=== PATIENT | male | born 1990 ===

== ENCOUNTER 2021-12-09 05:30 | Emergency (ER) | payer SELFPAY ==
--- NOTE | 2021-12-09 07:25 | XRay Report ---
CHEST 2 VIEWS INDICATION: cough, cp. COMPARISON: None FINDINGS: SUPPORT DEVICES: None. HEART: Within normal limits. LUNGS/PLEURA: No acute air space or interstitial disease. No pneumothorax. ADDITIONAL FINDINGS: None. IMPRESSION: 1. No acute findings. Signer Name: Mele Magana MD Signed: 12/09/2021 7:21 AM Workstation Name: [email or web address] ([id number]
--- NOTE | 2021-12-09 07:35 | Emergency Department Report ---
ED Chest Pain HPI - General Chief Complaint: Chest Pain Stated Complaint: CP AND ANAL PAIN Time Seen by Provider: 12/09/21 06:18 Source: patient Mode of arrival: Ambulatory Limitations: No Limitations - History of Present Illness Initial Comments: This is a 31-year-old male nontoxic, well nourished in appearance, no acute signs of distress presents to the ED with 2 complaints: 1) c/o of sharp chest pain that occurred this morning and lasted for about 2-3 minutes. Stated has resolved since then. Denies any chest pain in the ED at this time. Denies being a smoker. Patient denies any radiation of pain. Patient denies any upper respiratory symptoms. 2) c/o rectal pain x several days. Patient stated does perform rectal sex. Denies any other complaints or symptoms. Patient stated symptoms started the following day after a sexual intercourse. Patient denies any rectal bleeding. Patient denies any shortness of breath, hemoptysis, fever, chills, nausea, vomiting, abdominal pain, pelvic pain, penile discharge, testicular symptoms, headache, stiff neck, numbness, tingling, abdominal pain. Patient denies pleuritic chest pain. Patient denies any recent travels or long car rides. Patient denies any recent surgeries or any sick contacts. MD Complaint: chest pain -: This morning Pain Location: substernal Pain Radiation: none Severity scale (0 -10): 0 Quality: sharp Consistency: now resolved Improves With: nothing Worsens With: nothing re: denies: nausea, vomting, diaphoresis, dyspnea, sense of impending doom Other Symptoms: denies: cough, fever, syncope, rash, acid taste in mouth, leg swelling, palpitations, burping Treatments Prior to Arrival: none Aspirin use within the Past 7 Days: (0) No - Related Data Allergies Allergy/AdvReac Type Severity Reaction Status Date / Time No Known Allergies Allergy Unverified 12/09/21 05:53 Heart Score - HEART Score History: Slightly suspicious EKG: Normal Age: < 45 Risk factors: No known risk factors Troponin: < normal limit HEART Score: 0 - EKG Read Time Time EKG Completed: 11:22 EKG Read Time: 11:25 - Critical Actions Critical Actions: 0-3 pts:0.9-1.7%risk of adverse cardiac event.Candidate for discharge ED Review of Systems ROS: Stated complaint: CP AND ANAL PAIN Other details as noted in HPI Comment: All other systems reviewed and negative Constitutional: denies: chills, fever Eyes: denies: eye pain, eye discharge, vision change ENT: denies: ear pain, throat pain Respiratory: denies: cough, shortness of breath, wheezing Cardiovascular: chest pain. denies: palpitations Endocrine: no symptoms reported Gastrointestinal: denies: abdominal pain, nausea, diarrhea Genitourinary: denies: urgency, dysuria Musculoskeletal: denies: back pain, joint swelling, arthralgia Skin: denies: rash, lesions Neurological: denies: headache, weakness, paresthesias Psychiatric: denies: anxiety, depression Hematological/Lymphatic: denies: easy bleeding, easy bruising ED Physical Exam - General Limitations: No Limitations General appearance: alert, in no apparent distress - Head Head exam: Present: atraumatic, normocephalic - Eye Eye exam: Present: normal appearance - Neck Neck exam: Present: normal inspection, full ROM. Absent: lymphadenopathy - Respiratory Respiratory exam: Present: normal lung sounds bilaterally. Absent: respiratory distress, wheezes, rales, rhonchi, stridor, chest wall tenderness, accessory muscle use, decreased breath sounds, prolonged expiratory - Cardiovascular Cardiovascular Exam: Present: regular rate, normal rhythm, normal heart sounds. Absent: bradycardia, tachycardia, irregular rhythm, systolic murmur, diastolic murmur, rubs, gallop - GI/Abdominal GI/Abdominal exam: Present: soft, normal bowel sounds. Absent: distended, tenderness, guarding, rebound, rigid, diminished bowel sounds - Rectal Rectal exam: Present: normal inspection, normal rectal tone, other (small rectal abrasion). Absent: decreased rectal tone, heme (+) stool, black stool, bloody stool, fecal impaction, hemorrhoids, mass, tenderness - Extremities Exam Extremities exam: Present: full ROM - Back Exam Back exam: Present: normal inspection, full ROM. Absent: tenderness, CVA tenderness (R), CVA tenderness (L), muscle spasm, paraspinal tenderness, vertebral tenderness, rash noted - Neurological Exam Neurological exam: Present: alert, oriented X3, normal gait - Psychiatric Psychiatric exam: Present: normal affect, normal mood - Skin Skin exam: Present: warm, dry, intact, normal color. Absent: rash ED Course Vital Signs 12/09/21 05:53 Temperature 98.6 F Pulse Rate 96 H Respiratory 18 Rate Blood Pressure 155/91 [Right] O2 Sat by Pulse 96 Oximetry - Reevaluation(s) Reevaluation #1: 12/09/21 07:38 Patient is speaking in full sentences with no signs of distress noted. Reevaluation #2: 12/09/21 08:08 Patient at this time is not in the ED. Unable to locate the patient. Patient eloped without telling the nurse or any other staff members. As per RN, unable to get in touch with the patient at this time. ED Medical Decision Making - EKG Data 12/09/21 12:02 Normal sinus rhythm at [address]. [address] or T wave abnormalities for STEMI Reviewed and signed by MD. - Radiology Data [facility] [address] [place] [address] XRay Report Signed Patient: JONATHON QUAN MR#: [id number] [birth year] : 1990 Acct:[id number] Age/Sex: 31 / M ADM Date: 12/09/21 Loc: ED Attending Dr: Ordering Physician: APRIL MILES MD Date of Service: 12/09/21 Procedure(s): XR chest routine 2V Accession Number(s): [id number] cc: APRIL MILES MD Fluoro Time In Minutes: CHEST 2 VIEWS INDICATION: cough, cp. COMPARISON: None FINDINGS: SUPPORT DEVICES: None. HEART: Within normal limits. LUNGS/PLEURA: No acute air space or interstitial disease. No pneumothorax. ADDITIONAL FINDINGS: None. IMPRESSION: 1. No acute findings. Signer Name: Mele Magana MD Signed: 12/09/2021 7:21 AM Workstation Name: [id number] Transcribed By: JW Dictated By: Mele Magana MD Electronically Authenticated By: Mele Magana MD Signed Date/Time: 12/09/21720 DD/ 9 TD/TT: - Medical Decision Making 31-year-old male that presents with chest pain and rectal pain. Patient is stable and was examined by me. EKG and chest x-ray has been obtained. Labs has also been obtained for cardiac work-up. As per RN patient was not found in the ER. It is my assumption that patient eloped without getting proper evaluation, treatment and disposition. Critical care attestation.: If time is entered above; I have spent that time in minutes in the direct care of this critically ill patient, excluding procedure time. ED Disposition Clinical Impression: Chest pain, Rectal pain Disposition: 07 LEFT AWOL/ELOPED Is pt being admited?: No Condition: Undetermined Referrals: PRIMARY CARE, [Primary Care Provider] - 3-5 Days Time of Disposition: 11:56
[2021-12-09 19:54] VITALS: BP 115/74
--- NOTE | 2021-12-12 08:48 | Electrocardiograph Report ---
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
== END 2021-12-09 19:53 | disposition home or self-care (01) ==
LOC: ED 05:30
DX: R07.9 Chest pain, unspecified (principal); R10.2 Pelvic and perineal pain
CPT/HCPCS: 71046; 93005; 99283

== ENCOUNTER 2021-12-17 06:47 | Emergency (ER) | payer SELFPAY ==
[2021-12-17 07:07] VITALS: BP 143/86
--- NOTE | 2021-12-17 07:07 | Emergency Department Report ---
ED General Adult HPI - General Chief complaint: Pain General Stated complaint: anal fissure PUI?: No Time Seen by Provider: 12/17/21 06:57 Source: patient, RN notes reviewed, old records reviewed Mode of arrival: Stretcher Limitations: No Limitations - History of Present Illness Initial comments: The patient was evaluated in the emergency department for symptoms described in the history of present illness. He/she was evaluated in the context of the global COVID-19 pandemic, which necessitated consideration that the patient might be at risk for infection with the virus that causes COVID-19. Institutional protocols and algorithms that pertain to the evaluation of patients at risk for COVID-19 are in a state of rapid change based on information released by regulatory bodies including the CDC and federal and state organizations. These policies and algorithms were followed during the patient's care in the emergency department. Please note that these policies, procedures and recommendations changed on a rapid basis. The patient is a 31-year-old gentleman, who presents to the ER today with a complaint of rectal pain secondary to anal fissure. The patient was seen in this department last week for similar symptoms, and had a complete physical examination, including a rectal examination. The patient endorses that he is still engaging in receptive anal intercourse. The patient also endorses that he is not using the lubricant. The patient denies additional injuries and complaints. -: week(s) Improves with: rest Worsens with: other (Palpation) Associated Symptoms: denies other symptoms - Related Data Previous Rx's Medication Instructions Recorded Last Taken Type Dibucaine 1% [Nupercainal] 1 applicatio ID TID #1 tube 12/09/21 Unknown Rx Hydrocortisone [Anusol-Hc 2.5% TOP 1 applic RC Q12H #1 tube 12/09/21 Unknown Rx CREAM] Naproxen 500 mg PO Q12H PRN #20 tab 12/09/21 Unknown Rx guaiFENesin [Mucinex Fast-Max 5 ml PO Q8H PRN #120 ml 12/09/21 Unknown Rx Chest-Congest] Allergies Allergy/AdvReac Type Severity Reaction Status Date / Time No Known Allergies Allergy Unverified 12/09/21 05:53 ED Review of Systems ROS: Stated complaint: ANAL PAIN Other details as noted in HPI Constitutional: denies: fever Cardiovascular: denies: chest pain Gastrointestinal: denies: abdominal pain, nausea, vomiting, diarrhea, melena, hematochezia ED Past Medical Hx - Medications Home Medications: Home Medications Medication Instructions Recorded Confirmed Last Taken Type Dibucaine 1% [Nupercainal] 1 applicatio ID TID #1 tube 12/09/21 Unknown Rx Hydrocortisone [Anusol-Hc 2.5% TOP 1 applic RC Q12H #1 tube 12/09/21 Unknown Rx CREAM] Naproxen 500 mg PO Q12H PRN #20 tab 12/09/21 Unknown Rx guaiFENesin [Mucinex Fast-Max 5 ml PO Q8H PRN #120 ml 12/09/21 Unknown Rx Chest-Congest] ED Physical Exam - General Limitations: No Limitations General appearance: alert, in no apparent distress - Head Head exam: Present: atraumatic, normocephalic - Eye Eye exam: Present: normal appearance, EOMI. Absent: nystagmus - ENT ENT exam: Present: normal exam, normal orophraynx, mucous membranes moist, normal external ear exam - Neck Neck exam: Present: normal inspection, full ROM. Absent: tenderness, meningismus - Respiratory Respiratory exam: Present: normal lung sounds bilaterally. Absent: respiratory distress, wheezes, rales, rhonchi, stridor, decreased breath sounds - Cardiovascular Cardiovascular Exam: Present: regular rate, normal rhythm, normal heart sounds. Absent: bradycardia, tachycardia, irregular rhythm, systolic murmur, diastolic murmur, rubs, gallop - GI/Abdominal GI/Abdominal exam: Present: soft. Absent: distended, tenderness, guarding, rebound, rigid, pulsatile mass - Rectal Rectal exam: Present: deferred (Examination from previous evaluation is reviewed and appreciated) - Extremities Exam Extremities exam: Present: normal inspection, full ROM, pedal edema, other (2+ pulses noted in bilateral upper extremities. There is no long bony tenderness. The muscular compartments are soft.) - Back Exam Back exam: Present: normal inspection. Absent: tenderness, CVA tenderness (R), CVA tenderness (L), paraspinal tenderness, vertebral tenderness - Neurological Exam Neurological exam: Present: alert, oriented X3, normal gait, other (No facial droop. Tongue midline. Extraocular movements intact bilaterally. Facial sensation intact to light touch in V1, V2, V3 distribution bilaterally. 5 and a 5 strength in 4 extremities. Sensation intact to light touch in 4 extremities.). Absent: motor sensory deficit - Psychiatric Psychiatric exam: Present: normal affect, normal mood - Skin Skin exam: Present: warm, dry, intact, normal color. Absent: rash ED Course Vital Signs 12/17/21 06:56 Temperature 98.9 F Pulse Rate 92 H Respiratory 20 Rate Blood Pressure 143/86 O2 Sat by Pulse 99 Oximetry ED Medical Decision Making - Lab Data Vital Signs 12/17/21 06:56 Temperature 98.9 F Pulse Rate 92 H Respiratory 20 Rate Blood Pressure 143/86 O2 Sat by Pulse 99 Oximetry - Medical Decision Making Differential diagnosis, including but not limited to: Encounter for medical screening examination, history of anal fissure Assessment and plan: 31-year-old gentleman, who is afebrile, with reassuring vital signs, presenting with history of anal fissure, seen and evaluated in this department within the past week. Patient counseled to initiate sitz bath's, to initiate diet and lifestyle modifications, and to avoid receptive anal intercourse. He is ambulating with a steady gait with a cane, eating food, in no acute distress. He does not appear to have an emergent medical condition present at this time. Critical care attestation.: If time is entered above; I have spent that time in minutes in the direct care of this critically ill patient, excluding procedure time. ED Disposition Clinical Impression: Encounter for medical screening examination, History of anal fissures Disposition: 01 HOME / SELF CARE / HOMELESS Is pt being admited?: No Does the pt Need Aspirin: No Condition: Stable Instructions: How to Take a Sitz Bath, Anal Fissure, Adult Additional Instructions: Recommend that patient avoid receptive anal intercourse. Recommend that patient eat a bland diet, and consume plenty of fiber, vegetables, and lean protein. Recommend that patient drink at least 6 cups of water per day, and avoid consumption of simple carbohydrates, sugary drinks, and starch. Recommend that patient perform sitz bath as often as as needed for physical pain, and he may take Tylenol and/or Motrin [id number] as needed for physical pain. Recommended patient follow-up with a primary care doctor within 3 to 6 weeks. Anal fissure may take a few weeks to heal. Please return to the emergency room right away with new pain, worsened pain, migration of pain, projectile vomiting, change in mental status, confusion, inability tolerate liquid feeds, new, worsened or different symptoms not present on the initial emergency room evaluation Referrals: [facility] [Provider Group] - as needed [facility] [Outside] - as needed
== END 2021-12-17 07:19 | disposition home or self-care (01) ==
LOC: ED 06:47
DX: R10.2 Pelvic and perineal pain (principal)
CPT/HCPCS: 99282

== ENCOUNTER 2021-12-24 20:32 | Emergency (ER) | payer SELFPAY | END 2021-12-26 04:13 | LOC: ED 20:32 | DX: M79.673 Pain in unspecified foot (principal); Z53.21 Procedure and treatment not carried out due to patient leaving prior to being seen by health care provider ==

== ENCOUNTER 2021-12-25 01:50 | Emergency (ER) | payer SELFPAY ==
[2021-12-25 02:20] VITALS: BP 143/92
[2021-12-25] MEDS ORDERED: IBUPROFEN 800 MG TAB PO STA (03:53)
[2021-12-25] MEDS ORDERED: ACETAMINOPHEN 500 MG TAB PO STA (03:53)
--- NOTE | 2021-12-25 03:57 | Emergency Department Report ---
ED General Adult HPI - General Chief complaint: Extremity Injury, Lower Stated complaint: FOOT/ANKLE PAIN Time Seen by Provider: 12/25/21 03:20 Source: patient Mode of arrival: Ambulatory Limitations: No Limitations - History of Present Illness Initial comments: 31-year-old -[place]i male patient presents with complaints of right ankle and foot pain x 1 day. He denies any injuries. No history of gout. Pain worsens to touch and with walking per patient. He has not tried any OTC medications for symptoms. NKDA per patient - Related Data Previous Rx's Medication Instructions Recorded Last Taken Type Dibucaine 1% [Nupercainal] 1 applicatio NM TID #1 tube 12/09/21 Unknown Rx Hydrocortisone [Anusol-Hc 2.5% TOP 1 applic RC Q12H #1 tube 12/09/21 Unknown Rx CREAM] guaiFENesin [Mucinex Fast-Max 5 ml PO Q8H PRN #120 ml 12/09/21 Unknown Rx Chest-Congest] Naproxen 500 mg PO Q12H PRN #20 tab 12/25/21 Unknown Rx Allergies Allergy/AdvReac Type Severity Reaction Status Date / Time No Known Allergies Allergy Verified 12/25/21 02:18 ED Review of Systems ROS: Stated complaint: FOOT/ANKLE PAIN Other details as noted in HPI Constitutional: denies: chills, fever, malaise Musculoskeletal: arthralgia Skin: denies: rash, lesions, change in color Neurological: denies: numbness, paresthesias ED Past Medical Hx - Past Medical History Hx Hypertension: Yes Additional medical history: ANAL FISSURE - Surgical History Past Surgical History?: No - Social History Smoking Status: Never Smoker Substance Use Type: None - Medications Home Medications: Home Medications Medication Instructions Recorded Confirmed Last Taken Type Dibucaine 1% [Nupercainal] 1 applicatio NM TID #1 tube 12/09/21 Unknown Rx Hydrocortisone [Anusol-Hc 2.5% TOP 1 applic RC Q12H #1 tube 12/09/21 Unknown Rx CREAM] guaiFENesin [Mucinex Fast-Max 5 ml PO Q8H PRN #120 ml 12/09/21 Unknown Rx Chest-Congest] Naproxen 500 mg PO Q12H PRN #20 tab 12/25/21 Unknown Rx ED Physical Exam - General Limitations: No Limitations General appearance: alert, in no apparent distress - Head Head exam: Present: atraumatic, normocephalic - Eye Eye exam: Present: normal appearance. Absent: scleral icterus - Respiratory Respiratory exam: Absent: respiratory distress - Cardiovascular Cardiovascular Exam: Present: regular rate - Extremities Exam Extremities exam: Present: other (Tenderness to palpation to the anterior ankle and proximal metatarsals noted without swelling or erythema; normal pedal pulses noted) - Neurological Exam Neurological exam: Present: alert, oriented X3 - Psychiatric Psychiatric exam: Present: normal affect, agitated - Skin Skin exam: Present: warm, dry, intact, normal color. Absent: rash ED Course Vital Signs 12/25/21 02:19 Temperature 99.1 F Pulse Rate 78 Respiratory 19 Rate Blood Pressure 143/92 [Left] O2 Sat by Pulse 99 Oximetry ED Medical Decision Making - Radiology Data Radiology results: report reviewed Right ankle 4 views INDICATION: Pain FINDINGS: Mild degenerative change of the ankle. No acute fractures seen. Talar dome appears normal. Mild diffuse soft tissue swelling - Medical Decision Making 31-year-old -[place]i male patient presents with complaints of right ankle and foot pain x 1 day. He denies any injuries. No history of gout. Pain worsens to touch and with walking per patient. He has not tried any OTC medications for symptoms. NKDA per patient No acute abnormalities noted on x-ray. Patient placed in Jabari wrap. Recommend icing and NSAIDs. He is to follow-up with primary care. He is well-appearing, his vitals are within normal limits, he is stable for discharge home. Strict return precautions were discussed in detail with patient who verbalizes understanding. Critical care attestation.: If time is entered above; I have spent that time in minutes in the direct care of this critically ill patient, excluding procedure time. ED Disposition Clinical Impression: Foot pain, right Disposition: HOME / SELF CARE / HOMELESS Is pt being admited?: No Condition: Stable Instructions: Foot Pain Prescriptions: Naproxen 500 mg PO Q12H PRN #20 tab PRN Reason: pain Referrals: [facility] [Provider Group] - 3-5 Days NORBERT JIMENES DPM [Staff Physician] - as needed Forms: Work/School Release Form(ED)
--- NOTE | 2021-12-25 04:58 | XRay Report ---
Right ankle 4 views INDICATION: Pain FINDINGS: Mild degenerative change of the ankle. No acute fractures seen. Talar dome appears normal. Mild diffuse soft tissue swelling Signer Name: Kaushik Dsouza MD Signed: 12/25/2021 4:53 AM Workstation Name: [id number]
== END 2021-12-25 07:44 | disposition home or self-care (01) ==
LOC: ED 01:50
DX: M79.671 Pain in right foot (principal); I10 Essential (primary) hypertension
CPT/HCPCS: 99283

== ENCOUNTER 2022-08-05 02:21 | Emergency (ER) | payer OTHER ==
[2022-08-05] MEDS ORDERED: ACETAMINOPHEN 325 MG TAB PO ONE (03:45)
[2022-08-05] MEDS ORDERED: KETOROLAC 30 MG/1 ML INJ IV ONE (04:05)
[2022-08-05] MEDS ORDERED: ONDANSETRON 4 MG/2 ML INJ IV ONE (04:05)
[2022-08-05] MEDS ORDERED: SODIUM CHLORIDE 0.9% 1000 ML IV SOLN IV ONE (04:05)
--- NOTE | 2022-08-05 04:10 | Emergency Department Report ---
ED Fever HPI - General Chief Complaint: Fever Stated Complaint: ELEVATED TEMP/POSS EXPOSE TO MONKEY POX/COVID Time Seen by Provider: 08/05/22 03:41 Source: patient Exam Limitations: no limitations - History of Present Illness Initial Comments: 32-year-old male with a past medical history of hypertension, HIV with unknown viral load presents to the hospital with complaints of fever after exposure to a person who had both Monkey pox and COVID. Patient states this exposure was approximately 3 days ago. He denies sexual intercourse with his pressure but states he did share cigarettes. Yesterday he began to have generalized body aches, fever, and cough. He complains of a rash to his scrotal area, nausea without vomiting, and decreased p.o. intake. Patient states his last viral load testing was 1 year ago and he was undetectable at that time. He has since been noncompliant with antiretrovirals and follow-up. Patient received his COVID- vaccine and last received a booster in 2020. He has not taken irtz-glu-qeftrxl/outpatient COVID test prior to arrival ED Review of Systems ROS: Stated complaint: ELEVATED TEMP/POSS EXPOSE TO MONKEY POX/COVID Other details as noted in HPI Comment: All other systems reviewed and negative ED Past Medical Hx - Past Medical History Previous Medical History?: Yes Hx Hypertension: Yes Hx HIV: Yes Additional medical history: ANAL FISSURE - Surgical History Past Surgical History?: Yes Additional Surgical History: Right Hip Replacement - Social History Smoking Status: Current Every Day Smoker Substance Use Type: None - Medications Home Medications: Home Medications Medication Instructions Recorded Confirmed Last Taken Type Dibucaine 1% [Nupercainal] 1 applicatio AK TID #1 tube 12/09/21 Unknown Rx Hydrocortisone [Anusol-Hc 2.5% TOP 1 applic RC Q12H #1 tube 12/09/21 Unknown Rx CREAM] guaiFENesin [Mucinex Fast-Max 5 ml PO Q8H PRN #120 ml 12/09/21 Unknown Rx Chest-Congest] Naproxen 500 mg PO Q12H PRN #20 tab 12/25/21 Unknown Rx Ibuprofen [Motrin] 800 mg PO Q8HR PRN #20 tablet 08/05/22 Unknown Rx Ondansetron [Zofran Odt] 4 mg PO Q8HR #20 tab.rapdis 08/05/22 Unknown Rx ED Physical Exam - General Limitations: No Limitations - Other Other exam information: General: No acute distress Head: Atraumatic Eyes: normal appearance ENT: Moist mucous membranes Neck: Normal appearance, no midline tenderness Chest: Clear to auscultation bilaterally CV: Regular rate and rhythm Abdomen: Soft, normal bowel sounds, nontender, nondistended, no rebound or guarding : No noticeable rash to scrotal area. No proximal lesions noted Back: Normal inspection Extremity: Normal inspection, full range of motion Neuro: Alert O x 3, no facial asymmetry, speech clear, no gross motor sensory deficit Psych: Appropriate behavior Skin: No rash to palms or soles ED Course Vital Signs 08/05/22 08/05/22 08/05/22 02:22 03:55 04:01 Temperature 103.1 F H Pulse Rate 99 H 104 H 115 H Respiratory 18 24 21 Rate Blood Pressure 152/91 128/53 O2 Sat by Pulse 98 97 98 Oximetry 08/05/22 08/05/22 08/05/22 04:15 04:19 04:30 Temperature 102.0 F H Pulse Rate 104 H 105 H Respiratory 28 H 22 31 H Rate Blood Pressure 128/52 128/52 O2 Sat by Pulse 99 95 96 Oximetry 08/05/22 08/05/22 08/05/22 04:45 05:01 05:15 Temperature Pulse Rate 108 H 103 H 107 H Respiratory 28 H 25 H 28 H Rate Blood Pressure 117/49 128/52 127/55 O2 Sat by Pulse 97 97 95 Oximetry 08/05/22 08/05/22 08/05/22 05:31 05:45 06:01 Temperature Pulse Rate 99 H 97 H 94 H Respiratory 24 21 22 Rate Blood Pressure 109/42 100/36 127/55 O2 Sat by Pulse 96 96 98 Oximetry 08/05/22 08/05/22 08/05/22 06:15 06:31 06:45 Temperature Pulse Rate 90 86 84 Respiratory 19 18 18 Rate Blood Pressure 102/37 100/39 105/37 O2 Sat by Pulse 97 97 98 Oximetry 08/05/22 08/05/22 08/05/22 07:01 07:15 07:31 Temperature Pulse Rate 87 87 84 Respiratory 20 19 10 L Rate Blood Pressure 105/37 104/43 106/58 O2 Sat by Pulse 99 98 99 Oximetry 08/05/22 07:45 Temperature Pulse Rate 84 Respiratory 18 Rate Blood Pressure 85/31 O2 Sat by Pulse 98 Oximetry ED Medical Decision Making - Lab Data Result diagrams: 08/05/22 04:22 08/05/22 04:22 Lab Results 08/05/22 08/05/22 08/05/22 Range/Units 04:22 04:22 04:22 WBC 17.4 H (4.5-11.0) K/mm3 RBC 3.99 (3.65-5.03) M/mm3 Hgb 10.2 L (11.8-15.2) gm/dl Hct 31.5 L (35.5-45.6) % MCV 79 L (84-94) fl MCH 26 L (28-32) pg MCHC 32 (32-34) % RDW 18.1 H (13.2-15.2) % Plt Count 234 (140-440) K/mm3 Add Manual Diff Complete Total Counted 100 Seg Neuts % (Manual) 84.0 H (40.0-70.0) % Band Neutrophils % 1.0 % Lymphocytes % (Manual) 8.0 L (13.4-35.0) % Reactive Lymphs % (Man) 0 % Monocytes % (Manual) 6.0 (0.0-7.3) % Eosinophils % (Manual) 1.0 (0.0-4.3) % Basophils % (Manual) 0 (0.0-1.8) % Metamyelocytes % 0 % Myelocytes % 0 % Promyelocytes % 0 % Blast Cells % 0 % Nucleated RBC % Not Reportable Seg Neutrophils # Man 14.6 H (1.8-7.7) K/mm3 Band Neutrophils # 0.2 K/mm3 Lymphocytes # (Manual) 1.4 (1.2-5.4) K/mm3 Abs React Lymphs (Man) 0.0 K/mm3 Monocytes # (Manual) 1.0 H (0.0-0.8) K/mm3 Eosinophils # (Manual) 0.2 (0.0-0.4) K/mm3 Basophils # (Manual) 0.0 (0.0-0.1) K/mm3 Metamyelocytes # 0.0 K/mm3 Myelocytes # 0.0 K/mm3 Promyelocytes # 0.0 K/mm3 Blast Cells # 0.0 K/mm3 WBC Morphology Not Reportable Hypersegmented Neuts Not Reportable Hyposegmented Neuts Not Reportable Hypogranular Neuts Not Reportable Smudge Cells Not Reportable Toxic Granulation Not Reportable Toxic Vacuolation Not Reportable Dohle Bodies Not Reportable Pelger-Huet Anomaly Not Reportable Dayday Rods Not Reportable Platelet Estimate Consistent w auto Clumped Platelets Not Reportable Plt Clumps, EDTA Not Reportable Large Platelets Not Reportable Giant Platelets Not Reportable Platelet Satelliting Not Reportable Plt Morphology Comment Not Reportable RBC Morphology Not Reportable Dimorphic RBCs Not Reportable Polychromasia Not Reportable Hypochromasia Not Reportable Poikilocytosis Not Reportable Anisocytosis 1+ Microcytosis Not Reportable Macrocytosis Not Reportable Spherocytes Not Reportable Pappenheimer Bodies Not Reportable Sickle Cells Not Reportable Target Cells Not Reportable Tear Drop Cells Not Reportable Ovalocytes Not Reportable Helmet Cells Not Reportable Reza-[place] Bodies Not Reportable [place] Rings Not Reportable [place] Cells Not Reportable Bite Cells Not Reportable Crenated Cell Not Reportable Elliptocytes Not Reportable Acanthocytes (Spur) Not Reportable Rouleaux Not Reportable Hemoglobin C Crystals Not Reportable Schistocytes Not Reportable Malaria parasites Not Reportable Noah Bodies Not Reportable Hem Pathologist Commnt No Sodium 132 L (137-145) mmol/L Potassium 3.6 (3.6-5.0) mmol/L Chloride 98.1 (98-107) mmol/L Carbon Dioxide 23 (22-30) mmol/L Anion Gap 15 mmol/L BUN 10 (9-20) mg/dL Creatinine 0.6 L (0.8-1.3) mg/dL Estimated GFR > 60 ml/min BUN/Creatinine Ratio 17 % Glucose 85 (75-100) mg/dL Lactic Acid 3.10 H* (0.7-2.0) mmol/L Calcium 8.3 L (8.4-10.2) mg/dL Total Bilirubin 0.80 (0.1-1.2) mg/dL AST 66 H (5-40) units/L ALT 36 (7-56) units/L Alkaline Phosphatase 78 (35-129) units/L Total Protein 10.3 H (6.3-8.2) g/dL Albumin 3.4 L (3.9-5) g/dL Albumin/Globulin Ratio 0.5 % 08/05/22 Range/Units 05:40 WBC (4.5-11.0) K/mm3 RBC (3.65-5.03) M/mm3 Hgb (11.8-15.2) gm/dl Hct (35.5-45.6) % MCV (84-94) fl MCH (28-32) pg MCHC (32-34) % RDW (13.2-15.2) % Plt Count (140-440) K/mm3 Add Manual Diff Total Counted Seg Neuts % (Manual) (40.0-70.0) % Band Neutrophils % % Lymphocytes % (Manual) (13.4-35.0) % Reactive Lymphs % (Man) % Monocytes % (Manual) (0.0-7.3) % Eosinophils % (Manual) (0.0-4.3) % Basophils % (Manual) (0.0-1.8) % Metamyelocytes % % Myelocytes % % Promyelocytes % % Blast Cells % % Nucleated RBC % Seg Neutrophils # Man (1.8-7.7) K/mm3 Band Neutrophils # K/mm3 Lymphocytes # (Manual) (1.2-5.4) K/mm3 Abs React Lymphs (Man) K/mm3 Monocytes # (Manual) (0.0-0.8) K/mm3 Eosinophils # (Manual) (0.0-0.4) K/mm3 Basophils # (Manual) (0.0-0.1) K/mm3 Metamyelocytes # K/mm3 Myelocytes # K/mm3 Promyelocytes # K/mm3 Blast Cells # K/mm3 WBC Morphology Hypersegmented Neuts Hyposegmented Neuts Hypogranular Neuts Smudge Cells Toxic Granulation Toxic Vacuolation Dohle Bodies Pelger-Huet Anomaly Dayday Rods Platelet Estimate Clumped Platelets Plt Clumps, EDTA Large Platelets Giant Platelets Platelet Satelliting Plt Morphology Comment RBC Morphology Dimorphic RBCs Polychromasia Hypochromasia Poikilocytosis Anisocytosis Microcytosis Macrocytosis Spherocytes Pappenheimer Bodies Sickle Cells Target Cells Tear Drop Cells Ovalocytes Helmet Cells Reza-[place] Bodies [place] Rings Rea Cells Bite Cells Crenated Cell Elliptocytes Acanthocytes (Spur) Rouleaux Hemoglobin C Crystals Schistocytes Malaria parasites Noah Bodies Hem Pathologist Commnt Sodium (137-145) mmol/L Potassium (3.6-5.0) mmol/L Chloride (98-107) mmol/L Carbon Dioxide (22-30) mmol/L Anion Gap mmol/L BUN (9-20) mg/dL Creatinine (0.8-1.3) mg/dL Estimated GFR ml/min BUN/Creatinine Ratio % Glucose (75-100) mg/dL Lactic Acid 1.30 (0.7-2.0) mmol/L Calcium (8.4-10.2) mg/dL Total Bilirubin (0.1-1.2) mg/dL AST (5-40) units/L ALT (7-56) units/L Alkaline Phosphatase (35-129) units/L Total Protein (6.3-8.2) g/dL Albumin (3.9-5) g/dL Albumin/Globulin Ratio % - Radiology Data Radiology results: report reviewed CHEST 1 VIEW 08/05/2022 4:33 AM INDICATION / CLINICAL INFORMATION: fever, cough. COMPARISON: 2 views of the chest from 12/09/2021. FINDINGS: SUPPORT DEVICES: None. HEART / MEDIASTINUM: No significant abnormality. LUNGS / PLEURA: No significant pulmonary abnormality. No significant pleural effusion. No pneumothorax. ADDITIONAL FINDINGS: No significant additional findings. IMPRESSION: 1. No acute abnormality of the chest - Medical Decision Making 32-year-old male with fever with a history of HIV with undetectable viral load who reports marked hypoxia and COVID-19 exposure. Chest x-ray unremarkable. CBC count increased. Chemistries/CMP unremarkable. Patient does have mild lactic acid elevation which needs to be repeated to ensure it is decreasing with IV fluid hydration. Urine collection pending Patient likely has a viral syndrome and possible COVID. Monkey pox is still a possibility however, patient does not have any visible pox lesions at this time If urine is unremarkable and lactic acid is decreasing patient will need symptomatic treatment for viral syndrome with outpatient follow-up for further evaluation and testing. Case will be signed out to Dr Perez Critical Care Time: No Critical care attestation.: If time is entered above; I have spent that time in minutes in the direct care of this critically ill patient, excluding procedure time. ED Disposition Clinical Impression: Viral syndrome, HIV (human immunodeficiency virus infection), Exposure to COVID-19 virus Disposition: 01 HOME / SELF CARE / HOMELESS Is pt being admited?: No Does the pt Need Aspirin: No Condition: Stable Instructions: COVID-19, Viral Respiratory Infection, [id number] Additional Instructions: Take the medication as prescribed. You may also take Tylenol as needed for pain or fever. Follow-up with your doctor or doctor/clinic provided. Return if symptoms worsen as indicated by your discharge instructions. It is possible that your viral syndrome is caused by COVID-19. Please obtain a outpatient COVID test which can be bought [id number] It is also possible that your symptoms may be secondary to monkey box. At this time we do not have any monkey box lesions. If you do develop a monkey pox rash call the health department to obtain information regarding testing locations. If your symptoms are severe go to the hospital for reevaluation Prescriptions: Ibuprofen [Motrin] 800 mg PO Q8HR PRN #20 tablet PRN Reason: Fever >101 Ondansetron [Zofran Odt] 4 mg PO Q8HR #20 tab.rapdis Referrals: GERARDO DELONG MD [Staff Physician] - 3-5 Days (Infectious disease) [facility] [Provider Group] - 3-5 Days (Primary care doctor)
[2022-08-05 04:41] LABS: Hematocrit 31.5 % (35.5-45.6); Hemoglobin 10.2 gm/dl (11.8-15.2); Mean Corpuscular HGB Conc 32 % (32-34); Mean Corpuscular Volume 79 fl (84-94); Platelet Count 234 K/mm3 (140-440); Red Blood Count 3.99 M/mm3 (3.65-5.03); Red Cell Distribution Width 18.1 % (13.2-15.2)
[2022-08-05 04:58] LABS: Alanine Aminotransferase 36 units/L (7-56); Albumin 3.4 g/dL (3.9-5); Blood Urea Nitrogen 10 mg/dL (9-20); Calcium 8.3 mg/dL (8.4-10.2); Hemolysis Index 18
[2022-08-05 05:00] LABS: BUN/Creatinine Ratio 17
--- NOTE | 2022-08-05 05:03 | XRay Report ---
CHEST 1 VIEW 08/05/2022 4:33 AM INDICATION / CLINICAL INFORMATION: fever, cough. COMPARISON: 2 views of the chest from 12/09/2021. FINDINGS: SUPPORT DEVICES: None. HEART / MEDIASTINUM: No significant abnormality. LUNGS / PLEURA: No significant pulmonary abnormality. No significant pleural effusion. No pneumothora x. ADDITIONAL FINDINGS: No significant additional findings. IMPRESSION: 1. No acute abnormality of the chest. Signer Name: Luis Angel Robles MD Signed: 08/05/2022 4:58 AM Workstation Name: [id number]
[2022-08-05 05:21] LABS: Anisocytosis 1+; Band Neutrophils # (Manual) 0.2 K/mm3; Basophils % (Manual) 0 % (0.0-1.8); Platelet Estimate Consistent w Auto; Total Cells Counted 100
[2022-08-05 07:49] VITALS: BP 85/31
== END 2022-08-05 10:03 | disposition home or self-care (01) ==
LOC: ED 02:21
DX: B34.9 Viral infection, unspecified (principal); R50.9 Fever, unspecified; Z20.822 Contact with and (suspected) exposure to COVID-19; I10 Essential (primary) hypertension; F17.200 Nicotine dependence, unspecified, uncomplicated; Z79.899 Other long term (current) drug therapy
CPT/HCPCS: 36415; 71045; 80053; 82140; 85007; 85025; 87040; 96361; 96374; 96375; 99284; J1885; J2405; J7030

== ENCOUNTER 2022-08-07 16:12 | Inpatient (IN) | payer OTHER ==
--- NOTE | 2022-08-08 02:57 | Emergency Department Report ---
ED General Adult HPI - General Chief complaint: Pain General Stated complaint: MUSCLE PAIN/SOB Time Seen by Provider: 08/08/22 02:47 Source: patient, EMS Mode of arrival: Stretcher Limitations: No Limitations - History of Present Illness Initial comments: 32-year-old -Serbian male with a past medical history of hypertension, HIV with unknown viral load and tobacco abuse presents returns to the emergency department after his initial evaluation on 08/05/2022 complaining of continued cough congestion coryza body aches fevers chills or shortness of breath and diarrhea with a strong suspicion for COVID exposure but is a he has not taken any [id number] or outpatient COVID test prior to arrival. He reports no hemoptysis no no no hematemesis but has been experiencing some cough, congestion, exertional dyspnea, fever, chills, sweats. -: Gradual Radiation: non-radiation Quality: dull Consistency: constant Improves with: none Worsens with: none Associated Symptoms: denies other symptoms Treatments Prior to Arrival: none - Related Data Previous Rx's Medication Instructions Recorded Last Taken Type Dibucaine 1% [Nupercainal] 1 applicatio AK TID #1 tube 12/09/21 Unknown Rx Hydrocortisone [Anusol-Hc 2.5% TOP 1 applic RC Q12H #1 tube 12/09/21 Unknown Rx CREAM] guaiFENesin [Mucinex Fast-Max 5 ml PO Q8H PRN #120 ml 12/09/21 Unknown Rx Chest-Congest] Naproxen 500 mg PO Q12H PRN #20 tab 12/25/21 Unknown Rx Ibuprofen [Motrin] 800 mg PO Q8HR PRN #20 tablet 08/05/22 Unknown Rx Ondansetron [Zofran Odt] 4 mg PO Q8HR #20 tab.rapdis 08/05/22 Unknown Rx Allergies Allergy/AdvReac Type Severity Reaction Status Date / Time No Known Allergies Allergy Verified 08/07/22 16:20 ED Review of Systems ROS: Stated complaint: MUSCLE PAIN/SOB Other details as noted in HPI Comment: All other systems reviewed and negative ED Past Medical Hx - Past Medical History Hx Hypertension: Yes Hx HIV: Yes Additional medical history: ANAL FISSURE - Surgical History Additional Surgical History: Right Hip Replacement - Social History Smoking Status: Current Every Day Smoker Substance Use Type: None - Medications Home Medications: Home Medications Medication Instructions Recorded Confirmed Last Taken Type Dibucaine 1% [Nupercainal] 1 applicatio AK TID #1 tube 12/09/21 Unknown Rx Hydrocortisone [Anusol-Hc 2.5% TOP 1 applic RC Q12H #1 tube 12/09/21 Unknown Rx CREAM] guaiFENesin [Mucinex Fast-Max 5 ml PO Q8H PRN #120 ml 12/09/21 Unknown Rx Chest-Congest] Naproxen 500 mg PO Q12H PRN #20 tab 12/25/21 Unknown Rx Ibuprofen [Motrin] 800 mg PO Q8HR PRN #20 tablet 08/05/22 Unknown Rx Ondansetron [Zofran Odt] 4 mg PO Q8HR #20 tab.rapdis 08/05/22 Unknown Rx ED Physical Exam - General Limitations: No Limitations General appearance: alert, in no apparent distress - Head Head exam: Present: atraumatic, normocephalic - Eye Eye exam: Present: normal appearance, PERRL, EOMI Pupils: Present: normal accommodation - ENT ENT exam: Present: normal exam, normal orophraynx, mucous membranes moist, TM's normal bilaterally - Neck Neck exam: Present: normal inspection, full ROM - Respiratory Respiratory exam: Present: normal lung sounds bilaterally, rhonchi. Absent: respiratory distress, chest wall tenderness - Cardiovascular Cardiovascular Exam: Present: regular rate, normal rhythm. Absent: systolic murmur, diastolic murmur, rubs, gallop - GI/Abdominal GI/Abdominal exam: Present: soft, normal bowel sounds - Rectal Rectal exam: Present: deferred - Extremities Exam Extremities exam: Present: normal inspection - Back Exam Back exam: Present: normal inspection - Neurological Exam Neurological exam: Present: alert, oriented X3 - Psychiatric Psychiatric exam: Present: normal affect, normal mood - Skin Skin exam: Present: warm, dry, intact, normal color. Absent: rash ED Course Vital Signs 08/07/22 16:19 Pulse Rate 113 H Blood Pressure 123/63 [Left] O2 Sat by Pulse 98 Oximetry ED Medical Decision Making - Lab Data Result diagrams: 08/08/22 04:24 - Radiology Data Radiology results: report reviewed [facility] [address] [place] [address] XRay Report Signed Patient: JONATHON QUAN MR#: [id number] 68 : 1990 Acct:[id number] Age/Sex: 32 / M ADM Date: 08/07/22 Loc: ED Attending Dr: Ordering Physician: YULISSA LANE Date of Service: 08/08/22 Procedure(s): XR chest routine 2V Accession Number(s): [id number] cc: YULISSA LANE Fluoro Time In Minutes: CHEST 2 VIEWS INDICATION / CLINICAL INFORMATION: cough STUDY TIME: 030 COMPARISON: 08/05/2022 FINDINGS: SUPPORT DEVICES: None. HEART / MEDIASTINUM: No significant abnormality. LUNGS / PLEURA: Increasing atelectasis and infiltrate are seen in the left lower lobe consistent with worsening pneumonitis. Right lung field remains clear. There may be a small left pleural effusion. No pneumothorax. ADDITIONAL FINDINGS: No significant additional findings. Signer Name: Meliton Zarco MD Signed: 08/08/2022 3:10 AM Workstation Name: [id number] Transcribed By: GJ Dictated By: Meliton Zarco MD Electronically Authenticated By: Meliton Zarco MD Signed Date/Time: 08/08/22309 DD/ 8 TD/TT: - Medical Decision Making This patient presents to the emergency department with fever and lower respiratory symptoms concerning for viral syndrome including flu and COVID-19. Patient has suspicion and is for COVID-19 infection. Differential diagnosis includes other viral causes of lower respiratory symptoms, pneumonia, asthma, bronchitis. Patient is having mild distress and exertional dyspnea with exertional hypoxemia and does encompass other comorbidities so at this time we will be planning for admission. During admission he would be screened for COVID testing is recommended. Provide strict return precautions and instructions on self isolation/quarantine and anticipatory guidance. Critical care attestation.: If time is entered above; I have spent that time in minutes in the direct care of this critically ill patient, excluding procedure time. ED Disposition Clinical Impression: Exposure to COVID-19 virus, Pneumonia, COVID-19 Disposition: ADMITTED INPATIENT Is pt being admited?: No Does the pt Need Aspirin: No Condition: Stable Instructions: COVID-19, Community-Acquired Pneumonia, Adult, Bacterial Pne [facility] (ED) Referrals: DONNA STREETER MD [Primary Care Provider] - 3-5 Days
--- NOTE | 2022-08-08 03:14 | XRay Report ---
CHEST 2 VIEWS INDICATION / CLINICAL INFORMATION: cough STUDY TIME: 306 COMPARISON: 08/05/2022 FINDINGS: SUPPORT DEVICES: None. HEART / MEDIASTINUM: No significant abnormality. LUNGS / PLEURA: Increasing atelectasis and infiltrate are seen in the left lower lobe consistent with worsening pneumonitis. Right lung field remains clear. There may be a small left pleural effusion. N o pneumothorax. ADDITIONAL FINDINGS: No significant additional findings. Signer Name: Meliton Zarco MD Signed: 08/08/2022 3:10 AM Workstation Name: [id number]
[2022-08-08] MEDS ORDERED: dexAMETHasone 4 MG/ML VIAL IM ONE (04:05)
[2022-08-08] MEDS ORDERED: LIDOCAINE-MPF (1%) 10 MG/1 ML VIAL 5 ML INFILTRATI ONE (04:05)
[2022-08-08] MEDS ORDERED: AZITHROMYCIN/NS 500 MG/250 ML 500 MG/250 ML BAG IV ONE (04:22)
[2022-08-08] MEDS ORDERED: cefTRIAXone/NS 2 GM/100 ML 2 GM/100 ML BAG IV ONE (04:22)
[2022-08-08] MEDS ORDERED: ALBUTEROL 2.5 MG/3 ML NEBU IH ONE (04:22)
[2022-08-08 04:49] LABS: Basophils # (Auto) 0.1 K/mm3 (0.0-0.1); Basophils % (Auto) 0.5 % (0.0-1.8); Hematocrit 25.3 % (35.5-45.6); Hemoglobin 8.2 gm/dl (11.8-15.2); Lymphocytes # (Auto) 2.9 K/mm3 (1.2-5.4); Mean Corpuscular HGB Conc 32 % (32-34); Mean Corpuscular Volume 78 fl (84-94); Monocytes # (Auto) 1.3 K/mm3 (0.0-0.8); Monocytes % (Auto) 13.8 % (0.0-7.3); Platelet Count 179 K/mm3 (140-440); Red Blood Count 3.26 M/mm3 (3.65-5.03)
[2022-08-08 05:09] LABS: Alanine Aminotransferase 33 units/L (7-56); Albumin 2.8 g/dL (3.9-5); BUN/Creatinine Ratio 15; Blood Urea Nitrogen 9 mg/dL (9-20); Calcium 7.8 mg/dL (8.4-10.2); Hemolysis Index 12
[2022-08-08 05:10] LABS: C-Reactive Protein 22.3 mg/dL (0.00-1.30)
[2022-08-08] MEDS ORDERED: ONDANSETRON 4 MG/2 ML INJ IV PRN (05:21)
[2022-08-08] MEDS ORDERED: MORPHINE 4 MG/1 ML INJ IV PRN (05:21)
[2022-08-08] MEDS ORDERED: ACETAMINOPHEN 325 MG TAB PO PRN (05:21)
[2022-08-08] MEDS ORDERED: ALBUTEROL 2.5 MG/3 ML NEBU IH PRN (05:21)
[2022-08-08] MEDS ORDERED: MORPHINE 2 MG/1 ML INJ IV PRN (05:21)
--- NOTE | 2022-08-08 05:27 | History and Physical Report ---
History of Present Illness Date of examination: 08/08/22 Date of admission: 08/08/22 Chief complaint: Cough Congestion Coryza Body ache History of present illness: 32-year-old -Algerian male with a past medical history of hypertension, HIV with unknown viral load and tobacco abuse presents returns to the emergency department after his initial evaluation on 08/05/2022 complaining of continued cough congestion coryza body aches fevers chills or shortness of breath and diarrhea with a strong suspicion for COVID exposure but is a he has not taken any [id number] or outpatient COVID test prior to arrival. He reports no hemoptysis no no no hematemesis but has been experiencing some cough, congestion, exertional dyspnea, fever, chills, sweats. In the emergency room chest x-ray shows increasing atelectasis and infiltrate are seen in the left lower lobe consistent with worsening pneumonitis. Right lung field remains clear. There may be a small left pleural effusion. No pneumothorax Past History Past Medical History: HIV/AIDS, hypertension, other (Anal fissure) Past Surgical History: Other (Right hip replacement) Social history: smoking Family history: hypertension Medications and Allergies Allergies Allergy/AdvReac Type Severity Reaction Status Date / Time No Known Allergies Allergy Verified 08/07/22 16:20 Home Medications Medication Instructions Recorded Confirmed Last Taken Type Dibucaine 1% [Nupercainal] 1 applicatio FL TID #1 tube 12/09/21 Unknown Rx Hydrocortisone [Anusol-Hc 2.5% TOP 1 applic RC Q12H #1 tube 12/09/21 Unknown Rx CREAM] guaiFENesin [Mucinex Fast-Max 5 ml PO Q8H PRN #120 ml 12/09/21 Unknown Rx Chest-Congest] Naproxen 500 mg PO Q12H PRN #20 tab 12/25/21 Unknown Rx Ibuprofen [Motrin] 800 mg PO Q8HR PRN #20 tablet 08/05/22 Unknown Rx Ondansetron [Zofran Odt] 4 mg PO Q8HR #20 tab.rapdis 08/05/22 Unknown Rx Active Meds: Active Medications Acetaminophen (Acetaminophen 325 Mg Tab) 650 mg PO Q4H PRN PRN Reason: Pain MILD(1-3)/Fever >100.5/MARTINS Albuterol (Albuterol 2.5 Mg/3 Ml Nebu) 2.5 mg IH Q3HRT PRN PRN Reason: Shortness Of Breath Albuterol/Ipratropium (Ipratropium/Albuterol Sulfate 3 Ml Ampul.Neb) 1 ampul IH Q6HRT [facility] Famotidine (Famotidine 20 Mg Tab) 20 mg PO BID [facility] Ceftriaxone Sodium (Rocephin/Ns 2 Gm/100 Ml) 2 gm in 100 mls @ 200 mls/hr IV Q24H [facility]; Protocol Morphine Sulfate (Morphine 2 Mg/1 Ml Inj) 2 mg IV Q4H PRN PRN Reason: Pain, Moderate (4-6) Morphine Sulfate (Morphine 4 Mg/1 Ml Inj) 4 mg IV Q4H PRN PRN Reason: Pain , Severe (7-10) Ondansetron HCl (Ondansetron 4 Mg/2 Ml Inj) 4 mg IV Q8H PRN PRN Reason: Nausea And Vomiting Sodium Chloride (Sodium Chloride 0.9% 10 Ml Flush Syringe) 10 ml IV BID [facility] Sodium Chloride (Sodium Chloride 0.9% 10 Ml Flush Syringe) 10 ml IV PRN PRN PRN Reason: LINE FLUSH Review of Systems All systems: negative Constitutional: fever, chills, other (Cough congestion coryza body ache) Exam - Constitutional Vitals: Temp Pulse Resp BP Pulse Ox 113 H 123/63 98 08/07/22 16:19 08/07/22 16:19 08/07/22 16:19 General appearance: Present: no acute distress, well-nourished - EENT Eyes: Present: PERRL ENT: hearing intact, clear oral mucosa - Neck Neck: Present: supple, normal ROM - Respiratory Respiratory effort: normal Respiratory: bilateral: CTA - Cardiovascular Heart Sounds: Present: S1 & S2. Absent: rub, click - Extremities Extremities: pulses symmetrical, No edema Peripheral Pulses: within normal limits - Abdominal General gastrointestinal: Present: soft, non-tender, non-distended, normal bowel sounds Male genitourinary: Present: normal - Integumentary Integumentary: Present: clear, warm, dry - Musculoskeletal Musculoskeletal: gait normal, strength equal bilaterally - Psychiatric Psychiatric: appropriate mood/affect, intact judgment & insight - Neurologic Neurologic: CNII-XII intact, moves all extremities Results - Labs CBC & Chem 7: 08/08/22 04:24 08/08/22 04:24 Labs: Laboratory Last Values WBC 9.6 K/mm3 (4.5-11.0) 08/08/22 04:24 RBC 3.26 M/mm3 (3.65-5.03) L 08/08/22 04:24 Hgb 8.2 gm/dl (11.8-15.2) L 08/08/22 04:24 Hct 25.3 % (35.5-45.6) L 08/08/22 04:24 MCV 78 fl (84-94) L 08/08/22 04:24 MCH 25 pg (28-32) L 08/08/22 04:24 MCHC 32 % (32-34) 08/08/22 04:24 RDW 17.0 % (13.2-15.2) H 08/08/22 04:24 Plt Count 179 K/mm3 (140-440) 08/08/22 04:24 Lymph % (Auto) 30.0 % (13.4-35.0) 08/08/22 04:24 Stearns % (Auto) 13.8 % (0.0-7.3) H 08/08/22 04:24 Eos % (Auto) 0.0 % (0.0-4.3) 08/08/22 04:24 Baso % (Auto) 0.5 % (0.0-1.8) 08/08/22 04:24 Lymph # (Auto) 2.9 K/mm3 (1.2-5.4) 08/08/22 04:24 Stearns # (Auto) 1.3 K/mm3 (0.0-0.8) H 08/08/22 04:24 Eos # (Auto) 0.0 K/mm3 (0.0-0.4) 08/08/22 04:24 Baso # (Auto) 0.1 K/mm3 (0.0-0.1) 08/08/22 04:24 Seg Neutrophils % 55.7 % (40.0-70.0) 08/08/22 04:24 Seg Neutrophils # 5.4 K/mm3 (1.8-7.7) 08/08/22 04:24 D-Dimer 751.09 ng/mlDDU (0-234) H 08/08/22 04:24 Sodium 130 mmol/L (137-145) L 08/08/22 04:24 Potassium 3.3 mmol/L (3.6-5.0) L 08/08/22 04:24 Chloride 96.8 mmol/L (98-107) L 08/08/22 04:24 Carbon Dioxide 27 mmol/L (22-30) 08/08/22 04:24 Anion Gap 10 mmol/L 08/08/22 04:24 BUN 9 mg/dL (9-20) 08/08/22 04:24 Creatinine 0.6 mg/dL (0.8-1.3) L 08/08/22 04:24 Estimated GFR > 60 ml/min 08/08/22 04:24 BUN/Creatinine Ratio 15 % 08/08/22 04:24 Glucose 98 mg/dL (75-100) 08/08/22 04:24 Glucose 100 mg/dL (75-100) 08/08/22 04:24 Calcium 7.8 mg/dL (8.4-10.2) L 08/08/22 04:24 Total Bilirubin 0.70 mg/dL (0.1-1.2) 08/08/22 04:24 AST 58 units/L (5-40) H 08/08/22 04:24 ALT 33 units/L (7-56) 08/08/22 04:24 Alkaline Phosphatase 56 units/L (35-129) 08/08/22 04:24 Lactate Dehydrogenase 294 units/L (91-180) H 08/08/22 04:24 C-Reactive Protein 22.30 mg/dL (0.00-1.30) H 08/08/22 04:24 Total Protein 8.5 g/dL (6.3-8.2) H 08/08/22 04:24 Albumin 2.8 g/dL (3.9-5) L 08/08/22 04:24 Albumin/Globulin Ratio 0.5 % 08/08/22 04:24 - Imaging and Cardiology Chest x-ray: report reviewed Assessment and Plan VTE prophylaxis?: Mechanical Plan of care discussed with patient/family: Yes - Patient Problems (1) Pneumonia Current Visit: Yes Status: Acute Plan to address problem: Admit the patient to the medical floor. Oxygen via nasal cannula 3 L/min. Albuterol via nebulizer every 4 hours. DuoNeb by nebulizer every 4 hours as needed. Rocephin 2 g IV daily. Zithromax 500 mg p.o. daily. We will do the blood culture and sputum culture. Recheck CBC BMP in the morning (2) COVID-19 Current Visit: Yes Status: Acute Plan to address problem: Oxygen via nasal cannula 3 L/min. Albuterol via nebulizer every 4 hours. DuoNeb by nebulizer every 4 hours as needed. Rocephin 2 g IV daily. Zithromax 500 mg p.o. daily. We will do the blood culture and sputum culture. Patient already got dexamethasone 4 mg IV x1 dose. Consult infectious disease if needed. Follow PCR (3) Hypertension Current Visit: Yes Status: Acute Plan to address problem: Hydralazine 10 mg IV every 6 hours as needed. We continue the home medication (4) Tobacco abuse Current Visit: Yes Status: Acute Plan to address problem: We counseled the patient regarding quitting smoking. We will put the patient on nicotine patch (5) HIV (human immunodeficiency virus infection) Current Visit: No Status: Acute Plan to address problem: Stable. Outpatient follow-up with HIV clinic and infectious disease. Continue home medication (6) DVT prophylaxis Current Visit: Yes Status: Acute Plan to address problem: SCD for DVT prophylaxis. Pepcid 20 mg p.o. twice daily for GI prophylaxis. Patient is a full code
[2022-08-08 05:36] LABS: Hepatitis B Surface Antigen Non-Reactive (Negative); Hepatitis C Virus Antibody Reactive (NonReactive)
[2022-08-08] MEDS ORDERED: NICOTINE 14 MG/24 HR PATCH TD ONE (06:28)
[2022-08-08] MEDS ORDERED: dexAMETHasone 4 MG/ML VIAL IV SCH (10:00)
[2022-08-08] MEDS: AZITHROMYCIN 250 MG TAB PO SCH (13:13)
[2022-08-08] MEDS: FAMOTIDINE 20 MG TAB PO SCH ×2 (13:13→22:41)
[2022-08-08] MEDS: POTASSIUM CHLORIDE ER 20 MEQ TAB PO SCH ×2 (13:44→22:40)
[2022-08-08] MEDS: IPRATROPIUM/ALBUTEROL SULFATE 3 ML AMPUL.NEB IH SCH ×2 (13:58→14:00)
--- NOTE | 2022-08-08 14:40 | Event Note ---
Date: 08/08/22 The patient was evaluated this morning, and he was found to be hemodynamically stable. #HIV versus possible AIDS Patient's endorses not following with infectious disease in outpatient setting (previously [facility]) Pending HIV PCR, HIV quantitative PCR Patient counseled at length about following up with his infectious disease physician at [place] Continue to monitor #Possible COVID-19 infection #Possible community-acquired pneumonia Pending coronavirus PCR. D-dimer 751, LDH 294 Continue Rocephin 2 g daily and azithromycin 500 mg daily. Antibiotics will be discontinued if patient is found to be positive for coronavirus. Continue to monitor #Newly diagnosed hepatitis C Unremarkable hepatitis C antibody Patient will need to follow with gastroenterology in outpatient setting to determine possible treatment plans. #Hyponatremia Sodium 130 Likely secondary to decreased p.o. intake (tea and toast diet). Encouraging patient to increase p.o. intake. Continue to monitor with repeat BMP. #Hypokalemia Potassium 3.3 Repleted. Monitor with repeat BMP. #Microcytic anemia Hemoglobin 8.2 Pending iron, ferritin, TIBC. Possibly secondary to anemia of chronic disease in the setting of untreated HIV/AIDS. #Hypertensionruled out as the patient is normotensive. #Moderate protein caloric malnutrition Albumin 2.8 Starting dietary supplementation #Tobacco dependence #Tobacco/Smoking cessation counseling - Counseled patient about the importance of smoking cessation and the possible sequelae as a result of continued tobacco consumption. The patient expresses understanding. Starting nicotine patch 14 mg daily. -Time: +15 mins #Coordination of CARE time: 30 minutes. Total visit time equals 30 or more minutes with greater than 50% spent [id number] on coordination of care and counseling. #Advanced care planning -Disease education conducted, care plan discussed, diagnoses discussed, prognosis discussed, and patient acknowledges understanding with care plan -Time: +30 min
[2022-08-08 14:48] LABS: Iron 10 ug/dL (49-181); Total Iron Binding Capacity 214 mcg/dL (250-450)
[2022-08-08] MEDS: NICOTINE 14 MG/24 HR PATCH TD SCH (18:20)
[2022-08-09] MEDS ORDERED: cefTRIAXone/NS 2 GM/100 ML 2 GM/100 ML BAG IV SCH (06:00)
[2022-08-09] MEDS ORDERED: SODIUM FERRIC GLUCON/SUCRO 125 MG in SODIUM CHLORIDE 0.9% 100 ML IV ONE (09:00)
[2022-08-09] MEDS: AZITHROMYCIN 250 MG TAB PO SCH (09:01)
[2022-08-09] MEDS: NICOTINE 14 MG/24 HR PATCH TD SCH (09:01)
[2022-08-09] MEDS: FAMOTIDINE 20 MG TAB PO SCH (09:01)
[2022-08-09 10:06] LABS: Hematocrit 30.5 % (35.5-45.6); Hemoglobin 9.6 gm/dl (11.8-15.2); Mean Corpuscular HGB Conc 32 % (32-34); Mean Corpuscular Volume 79 fl (84-94); Platelet Count 187 K/mm3 (140-440); Red Blood Count 3.84 M/mm3 (3.65-5.03); Red Cell Distribution Width 17.9 % (13.2-15.2)
[2022-08-09 10:09] LABS: Blood Urea Nitrogen 10 mg/dL (9-20); Calcium 8.6 mg/dL (8.4-10.2); Hemolysis Index 72
[2022-08-09 10:40] LABS: BUN/Creatinine Ratio 17
[2022-08-09 11:00] LABS: Band Neutrophils # (Manual) 0.3 K/mm3; Basophils % (Manual) 0 % (0.0-1.8); Eosinophils % (Manual) 0 % (0.0-4.3); Total Cells Counted 100
[2022-08-09 11:01] LABS: Hypochromasia 1+; Platelet Estimate Consistent w Auto
--- NOTE | 2022-08-09 11:28 | Discharge Summary ---
Providers - Providers Date of Admission: 08/08/22 05:21 Date of discharge: 08/09/22 Attending physician: HSANI BANGURA MD Primary care physician: DONNA STREETER Hospitalization Reason for admission: Pneumonia 2/2 GNR or atypical bacteria, hyponatremia, hypokalemia Condition: Stable Pertinent studies: Reviewed. Procedures: None. Hospital course: Patient is a 32-year-old male past medical history of hypertension, untreated HIV (viral load unknown), tobacco dependence, unsheltered homelessness, and medication noncompliance who presented to the ED plaints of cough, congestion, coryza, myalgias, fever, chills, shortness of breath, and diarrhea. Patient denied any hemoptysis or hematemesis. 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 In the ED, the patient was found to be hemodynamically stable with tachycardia 113. Patient's labs were remarkable for hemoglobin 8.2, sodium 130, potassium 3.3, D-dimer 751, calcium 7.8, iron 10, TIBC 214, AST 58, LDH 294, CRP 22.3, albumin 2.8. Patient was found to be unremarkable for influenza A/B, coronavirus, and acute hepatitis ARB. The patient was found to be positive for chronic hepatitis C. Due to concerns for community-acquired pneumonia secondary to gram-negative rods versus atypical bacteria, the patient was started on goal-directed therapy of Rocephin and azithromycin. Patient underwent IV iron repletion and electrolyte repletion. Patient will be discharged with 5-day course of antibiotic (Levaquin 500 mg daily). Patient is medically clear for discharge. Disposition: 01 HOME / SELF CARE / HOMELESS Final Discharge Diagnosis (Prints w/discharge instructions): HIV/possible AIDS, community-acquired pneumonia secondary to gram-negative rods versus atypical bacteria, newly diagnosed hepatitis C, hyponatremia, hypokalemia, iron deficiency anemia, likely anemia of chronic disease, moderate protein caloric malnutrition, tobacco dependence Time spent for discharge: 45 min Core Measure Documentation - Palliative Care Palliative Care/ Comfort Measures: Not Applicable - Core Measures Any of the following diagnoses?: none Exam - Constitutional Vitals: Temp Pulse Resp BP Pulse Ox 98.0 F 80 18 124/72 98 08/08/22 21:49 08/08/22 21:49 08/08/22 21:49 08/08/22 21:49 08/09/22 09:16 General appearance: Present: no acute distress, well-nourished - EENT Eyes: Present: PERRL, EOM intact ENT: hearing intact, clear oral mucosa, dentition normal - Neck Neck: Present: supple, normal ROM - Respiratory Respiratory effort: normal Respiratory: bilateral: CTA - Cardiovascular Rhythm: regular Heart Sounds: Present: S1 & S2 - Extremities Extremities: no ischemia, pulses intact, pulses symmetrical, No edema, normal temperature, normal color, Full ROM Peripheral Pulses: within normal limits - Abdominal General gastrointestinal: Present: soft, non-tender, non-distended, normal bowel sounds Male genitourinary: Present: deferred - Rectal Rectal Exam: deferred - Integumentary Integumentary: Present: clear, warm, dry - Musculoskeletal Musculoskeletal: strength equal bilaterally - Psychiatric Psychiatric: appropriate mood/affect, cooperative - Neurologic Neurologic: CNII-XII intact, moves all extremities - Allied Health Allied health notes reviewed: nursing, social work Plan Activity: advance as tolerated Diet: regular Additional Instructions: Patient is a 32-year-old male past medical history of hypertension, untreated HIV (viral load unknown), tobacco dependence, unshel tered homelessness, and medication noncompliance who presented to the ED plaints of cough, congestion, coryza, myalgias, fever, chills, shortness of breath, and diarrhea. Patient denied any hemoptysis or hematemesis. 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 In the ED, the patient was found to be hemodynamically stable with tachycardia 113. Patient's labs were remarkable for hemoglobin 8.2, sodium 130, potassium 3.3, D-dimer 751, calcium 7.8, iron 10, TIBC 214, AST 58, LDH 294, CRP 22.3, albumin 2.8. Patient was found to be unremarkable for influenza A/B, coronavirus, and acute hepatitis ARB. The patient was found to be positive for chronic hepatitis C. Due to concerns for community-acquired pneumonia secondary to gram-negative rods versus atypical bacteria, the patient was started on goal- directed therapy of Rocephin and azithromycin. Patient underwent IV iron repletion and electrolyte repletion. Patient will be discharged with 5-day course of antibiotic (Levaquin 500 mg daily). Patient is medically clear for discharge. Care Plan Goals: Patient is medically clear for discharge. Assessment: Patient is a 32-year-old male past medical history of hypertension, untreated HIV (viral load unknown), tobacco dependence, unsheltered homelessness, and medication noncompliance who presented to the ED plaints of cough, congestion, coryza, myalgias, fever, chills, shortness of breath, and diarrhea. Patient denied any hemoptysis or hematemesis. 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 In the ED, the patient was found to be hemodynamically stable with tachycardia 113. Patient's labs were remarkable for hemoglobin 8.2, sodium 130, potassium 3.3, D-dimer 751, calcium 7.8, iron 10, TIBC 214, AST 58, LDH 294, CRP 22.3, albumin 2.8. Patient was found to be unremarkable for influenza A/B, coronavirus, and acute hepatitis ARB. The patient was found to be positive for chronic hepatitis C. Due to concerns for community-acquired pneumonia secondary to gram-negative rods versus atypical bacteria, the patient was started on goal-directed therapy of Rocephin and azithromycin. Patient underwent IV iron repletion and electrolyte repletion. Patient will be discharged with 5-day course of antibiotic (Levaquin 500 mg daily). Patient is medically clear for discharge. Follow up with: DONNA STREETER MD [Primary Care Provider] - 3-5 Days Prescriptions: Azithromycin [Zithromax TAB] 500 mg PO QDAY #4 tablet
[2022-08-09] MEDS ORDERED: SODIUM POLYSTYRENE 15 GM/60 ML ORAL LIQD PO NR (12:00)
[2022-08-09 13:29] VITALS: BP 133/84
[2022-08-11 18:43] LABS: HIV-1 RNA QN PCR 5.35 Log cps/mL
== END 2022-08-09 14:03 | disposition home or self-care (01) | DRG 975 ==
LOC: ED 16:12 → 3A 08-08 05:21
PROVIDERS: ADMIT Hospitalist; ATTEND Student in an Organized Health Care Education/Training Program
DX: J15.6 Pneumonia due to other Gram-negative bacteria (principal); B20 Human immunodeficiency virus [HIV] disease; E44.0 Moderate protein-calorie malnutrition; E87.1 Hypo-osmolality and hyponatremia; Z20.822 Contact with and (suspected) exposure to COVID-19; I10 Essential (primary) hypertension; F17.200 Nicotine dependence, unspecified, uncomplicated; Z71.6 Tobacco abuse counseling; B19.20 Unspecified viral hepatitis C without hepatic coma; Z68.23 Body mass index [BMI] 23.0-23.9, adult; E87.6 Hypokalemia; D50.9 Iron deficiency anemia, unspecified; Z96.641 Presence of right artificial hip joint; Z82.49 Family history of ischemic heart disease and other diseases of the circulatory system
CPT/HCPCS: 36415; 71046; 80048; 80053; 80074; 82728; 82947; 83550; 83615; 84145; 85007; 85025; 85379; 86140; 86689; 87400; 87536; 94640; 96372; 96374; 96375; 99285; 99406; G0378; J3490; J0456; J0696; J1100; J2916; U0003